=== PATIENT | male | born 1975 | race Two or more races ===

== ENCOUNTER 2018-07-21 00:50 | Emergency (ER) | payer OTHER ==
[~2018-07-21] VITALS: Ht 177.8 cm; Wt 72.6 kg
--- NOTE | 2018-07-21 01:19 | NUR ---
PT AMBULATED TO ER BED 06
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
[2018-07-21 01:41] VITALS: BP 155/116
--- NOTE | 2018-07-21 01:49 | NUR ---
EVALUATING AT BED 7
[2018-07-21] MEDS ORDERED: ETHYL CHLORIDE 105 ML SPR TP ONE (01:50)
[2018-07-21] MEDS ORDERED: LIDOCAINE 2% 1000 MG/50 ML VIAL INJ ONE (02:10)
--- NOTE | 2018-07-21 02:22 | NUR ---
DR VALDES AT BEDSIDE FOR L THUMB PROCEDURE
[2018-07-21 02:48] VITALS: BP 160/93
--- NOTE | 2018-07-21 02:48 | NUR ---
Patient discharged with v/s stable. Written and verbal after care instructions given and explained. Patient alert, oriented and verbalized understanding of instructions. Ambulatory with steady gait. All questions addressed prior to discharge. ID band removed. Patient advised to follow up with PMD. Rx of MOTRIN, BACTRIM given. Patient educated on indication of medication including possible reaction and side effects. Opportunity to ask questions provided and answered.
--- NOTE | 2018-07-21 02:49 | NUR ---
PT STATED HE WANTED TO SPEAK WITH RADHA BOYLE
--- NOTE | 2018-07-21 03:02 | NUR ---
DR VALDES AT BEDSIDE TO SPEAK WITH PT
== END 2018-07-21 02:48 | disposition home or self-care (01) ==
LOC: MED 00:50
DX: L03.012 Cellulitis of left finger (principal); R03.0 Elevated blood-pressure reading, without diagnosis of hypertension
CPT/HCPCS: 10060; 73140; 99283; J2001

== ENCOUNTER 2018-10-15 21:35 | Emergency (ER) | payer OTHER ==
[~2018-10-15] VITALS: Ht 177.8 cm; Wt 108.9 kg
[2018-10-15 21:46] VITALS: BP 129/76
--- NOTE | 2018-10-15 21:49 | NUR ---
TO LOBBY A/W BED, AMBULATORY
--- NOTE | 2018-10-15 22:19 | NUR ---
PT TAKEN TO BED 2
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
[2018-10-15] MEDS ORDERED: BACITRACIN OINT 500 UNITS/GM PKT TP ONE (22:55)
[2018-10-15 23:04] VITALS: BP 137/76
== END 2018-10-15 23:03 | disposition home or self-care (01) ==
LOC: MED 21:35
DX: L03.115 Cellulitis of right lower limb (principal); J45.909 Unspecified asthma, uncomplicated; I48.91 Unspecified atrial fibrillation; E11.9 Type 2 diabetes mellitus without complications; I10 Essential (primary) hypertension
CPT/HCPCS: 99283